=== PATIENT | male | born 1955 | race Caucasian/White ===

== ENCOUNTER 2023-10-23 12:53 | Outpatient (AMB) | payer OTHER, SELFPAY ==
--- NOTE | 2023-10-23 13:07 | MHC.PC.OV ---
Vital Signs 10/23/23 13:14 Height 6 ft 2 in Weight 223 lb BMI 28.6 BP 108/57 L Blood Pressure Location Rt brachial Position Sitting Respiration 12 Pulse 81 Pulse Source Pulse Oximeter Temp 98.2 F Temp Source Temporal Artery Scan Pulse Oximetry (%) 96 Oxygen Delivery Method Room Air Intake Visit Reasons: Establish Care Intake Note: establish care Allergies Penicillins [PENICILLINS] Allergy (Intermediate, Verified 10/23/23 13:07) HIVES Medication List - Last Reconciled 10/23/23 by Palmer Solorzano MD No Known Home Meds Tobacco use date assessed: 10/23/23 Fall risk assessment: No Falls in past year Last assessed Fall Risk: 10/23/23 Dental Screening Dental Screen Date: 10/23/23 Did you have a dental visit in the last 12 months?: Yes Did you have a dental problem in the last 6 months where you did not have access to dental care?: No Was dental information given to patient?: Patient has dentist HPI Establish Care HPI Details New Patient? ?? Prior PCP:? Memo BETANCUR, Last office visit/CPE:? > 1 yr Acute issue(s):? ??R knee knee x 1 yr. Uses a sleeve at night. PMHx:? Denies SurgHx:? Just colonoscopies FHx:? Dad: Anemia. EtOH. SocHx:? Nonsmoker. EtOH: about 3 beers for football games. No drugs HPI Comments History of Present Illness Details Documentation assistance for Palmer Solorzano MD, was provided by Oswaldo Mccracken,? Enterprise Systems Architect on 10/23/2023 at 1:30 PM EST. I, Dr. Solorzano, have read, observed, and verified documentation. [facility] Social History (Updated 10/23/23 @ 13:09 by Miriam Moncada) Housing: House Patient Tobacco Use Status: Never used Tobacco e-Cigarette/Vaping Use: Never Used Second Hand Smoke Exposure: No Use of substances other than those prescribed or required for medical reasons: No service: Yes Current occupational status: retired Current occupational exposures/hazards: No Cognitive needs: No Hearing needs: No Vision needs: No Questionnaire PHQ-9 Over the last 2 weeks, how often have you been bothered by any of the following problems? 1. Little interest or pleasure in doing things: not at all 2. Feeling down, depressed, or hopeless: not at all 3. Trouble falling or staying asleep, or sleeping too much: more than half the days 4. Feeling tired or having little energy: several days 5. Poor appetite or overeating: not at all 6. Feeling bad about yourself - or that you are a failure or have let yourself or your family down: not at all 7. Trouble concentrating on things, such as reading the newspaper or watching television: not at all 8. Moving or speaking so slowly that other people could have noticed. Or the opposite - being so fidgety or restless that you have been moving around a lot more than usual: not at all 9. Thoughts that you would be better off or of hurting yourself in some way: not at all Total score: 3 Depression Screening Interpretation: Negative Depression Screening Done: Yes 80750 - PHQ-9 Billing: Yes Source: Developed by Drs. Ben Singh, Shiela Matamoros, Pj Calles and colleagues, with an educational maynor from [employer]. Thrive Questionnaire Date Thrive assessed: 10/23/23 I am a: Patient What is your living situation today?: I have a steady place to live Within the past 12 months, did the food you bought not last and you didn't have the money to get more?: Never true Within the past 12 months, did you worry whether your food would run out before you got money to buy more?: Never true Do you have trouble paying for medicines?: No Do you have trouble getting transportation to medical appointments?: No Do you have trouble paying your heating and electricity bill?: No Do you have trouble taking care of your child, family member or friend?: No Do you have trouble with day-to-day activities such as bathing, preparing meals, shopping, managing finances, etc.?: No Are you currently unemployed and looking for a job?: No Are you interested in more education?: No Currently or been in a relationship where the following occur: No concerns reported THRIVE Score: 0 AUDIT C Alcohol Use Questionnaire (AUDIT-C) 1. How often do you have a drink containing alcohol?: 2-3 times a week 2. How many drinks containing alcohol do you have on a typical day when you are drinking?: 3 or 4 3. How often do you have six or more drinks on one occasion?: Weekly Total Score: 7 MIGUELANGEL-7 AMB Questionnaire MIGUELANGEL-7 Date MIGUELANGEL - 7 assessed: 10/23/23 Feeling nervous, anxious, or on edge: 0 = Not at all Not being able to stop or control worryin = Not at all Worrying too much about different things: 0 = Not at all Trouble relaxin = Not at all Being so restless that it is hard to sit still: 0 = Not at all Becoming easily annoyed or irritable: 0 = Not at all Feeling afraid as if something awful might happen: 0 = Not at all Total MIGUELANGEL-7 score (0-4 normal; 5-9 mild; 10-14 moderate; 15-21 severe): 0 Source: Developed by Drs. Ben Singh, Shiela Matamoros, Pj Calles and colleagues, with an educational maynor from [employer]. MIGUELANGEL-7 Assessment Billing MIGUELANGEL-7 Assessment Tool: MIGUELANGEL-7 Assessment 87114 Review of Systems Const Denies chills, Denies fatigue, Denies fever(s), Denies headache(s) and Denies weakness ENT Denies dizziness and Denies headache(s) Card Denies chest pain, Denies lightheadedness, Denies dyspnea and Denies other (Palpitations) Resp Denies cough, Denies dyspnea, Denies wheezing and Denies other ( shortness of breath) Musc Details: R knee pain Denies numbness and Denies tingling Neuro Denies dizziness, Denies headache(s), Denies numbness, Denies tingling, Denies paresthesias and Denies weakness Psych Denies anxiety and Denies depression Endo Denies fatigue Aller/Immun Denies wheezing Physical exam (Primary Care) Vital Signs: Last Vital Signs Temp 98.2 F 10/23/23 13:14 Pulse 81 10/23/23 13:14 Resp 12 10/23/23 13:14 BP 108/57 L 10/23/23 13:14 Pulse Ox 96 10/23/23 13:14 Oxygen Delivery Method Room Air 10/23/23 13:14 BMI result Body Mass Index 28.6 Tobacco/Smoking Status: Tobacco use Status Tobacco use date assessed 10/23/23 10/23/23 13:12 Patient Tobacco Use Status Never used Tobacco 10/23/23 13:12 e-Cigarette/Vaping Use Never Used 10/23/23 13:12 PHQ-9: PHQ-9 Score PHQ-9: Total score 3 10/23/23 13:26 Depression Screening Interpretation: Negative Thrive Assessment: Date of Thrive Assessment Date Thrive assessed 10/23/23 10/23/23 13:18 Currently or been in a relationship where the following occur: No concerns reported Const General: no acute distress and well developed Nutritional Appearance: well nourished Orientation/consciousness: patient oriented x3 HENMT Head: Yes normocephalic and Yes atraumatic Eyes General: appearance normal, both eyes and all related structures Pupils: Equal, round and reactive pupils present EOM: EOMs intact bilaterally Resp Effort & Inspection: normal respiratory effort Auscultation: clear to auscultation bilaterally Cardio Rate: regular rate Rhythm: regular rhythm Heart sounds: S1 normal heart sound present, S2 normal heart sound present, no gallops, no murmurs and no rubs Neuro General: patient oriented x3 and gait normal Cranial nerves: Yes Equal, round and reactive pupils present Psych Affect: normal affect Assessment and Plan Assessment & Plan (1) Right knee pain: Code(s): M25.561 - Pain in right knee Plan: Ongoing?right?knee?pain?for?a?year Special?testing?negative He?does?have?a?mild?effusion Likely?arthritis Checking?x-ray Trial?naproxen Ice/heat Will?follow-up?at?next?visit?and?discuss?next?steps (2) Laboratory exam ordered as part of routine general medical examination: Code(s): Z00.00 - Encounter for general adult medical examination without abnormal findings Plan: Check?labs Orders: Orders Complete Blood Count Auto Diff Today Z00.00 - Encounter for general adult medical examination without abnormal findings Comprehensive [place]. Panel Fast Today Z00.00 - Encounter for general adult medical examination without abnormal findings Lipid Panel Today Z00.00 - Encounter for general adult medical examination without abnormal findings Microalbumin, Random (w Creat) Today I10 - Essential (primary) hypertension TSH reflex Free T4 Today Z00.00 - Encounter for general adult medical examination without abnormal findings Prostate Specific Antigen Scr Today Z12.5 - Encounter for screening for malignant neoplasm of prostate UA and rflx microscopic Today Z00.00 - Encounter for general adult medical examination without abnormal findings Coding Level of Care Code New Pt Level 3 (27965) Diagnoses Right knee pain M25.561 Laboratory exam ordered as part of routine general medical examination Z00.00 Additional Codes MIGUELANGEL-7 Assessment Billing - MIGUELANGEL-7 Assessment Tool: MIGUELANGEL-7 Assessment 51890 ([id number])
[2023-10-23 13:14] VITALS: BP 108/57; PULSE 81; RESP 12; TEMP 36.8; O2SAT 96; BMI 28.6
== END 2023-10-23 13:53 | disposition home or self-care (01) ==
PROVIDERS: Visit Provider Family Medicine
DX: M25.561 Pain in right knee (principal)
CPT/HCPCS: 99203

== ENCOUNTER 2023-10-28 10:06 | Outpatient (REF) | payer OTHER, SELFPAY ==
[2023-10-28 11:24] LABS: MANUAL DIFF FLAG NO
[2023-10-28 11:33] LABS: Basophils Percent Auto 0.8 % (0-2); Eosinophils Absolute Auto 0.1 X10*3/uL (0.0-0.4); Eosinophils Percent Auto 2.7 % (0-4); Hematocrit 39.9 % (42.0-52.0); Hemoglobin 13.8 g/dl (14.0-18.0); Imm Gran Abs Auto 0.02 X10*3/uL (0.00-0.03); Imm Gran Pct Auto 0.4 % (0.0-0.4); Lymphocytes Absolute Auto 1.5 X10*3/uL (1.2-4.9); Lymphocytes Percent Auto 27.9 % (20-40); Mean Corpuscular HGB Conc 34.6 g/dl (31.0-36.0); Mean Corpuscular Hemoglobin 29.6 pg (27.0-33.0); Mean Corpuscular Volume 85.6 fL (80.0-98.0); Mean Platelet Volume 10.2 fL (9.4-12.4); Monocytes Absolute Auto 0.4 X10*3/uL (0.1-1.2); Monocytes Percent Auto 8.5 % (2-11); Neutrophils Absolute Auto 3.1 x10*3/uL (2.0-8.3); Neutrophils Percent Auto 59.7 % (45-73); Platelet Count 221 X10*3/uL (160-400); Red Blood Count 4.66 X10*6/uL (4.60-5.80); Red Cell Distribution Width 12.5 % (11.0-16.0); White Blood Count 5.2 X10*3/uL (4.8-10.8)
[2023-10-28 12:20] LABS: Alanine Aminotransferase 43 U/L (0-40); Albumin Level 4.3 g/dL (3.5-5.0); Alkaline Phosphatase 64 U/L (39-117); Anion Gap 13 (12-20); Aspartate Amino Transferase 28 U/L (5-37); Bilirubin Total 0.8 mg/dL (0.0-1.0); Blood Urea Nitrogen 11 mg/dL (9-16); Calcium 9.6 mg/dL (8.4-10.2); Carbon Dioxide 26 mmol/L (22-29); Chloride 106 mmol/L (96-108); Cholesterol 180 mg/dL (<200); Estimated Glomerular Filt Rate > 60; Glucose Fasting 102 mg/dL (60-99); HDL Cholesterol 51 mg/dL (>40); LDL Cholesterol Calculated 101 mg/dL (<100); Sodium 141 mmol/L (135-145); Total Protein 7.9 g/dL (6.5-8.0); Triglycerides 141 mg/dL (<150)
[2023-10-28 12:25] LABS: TSH reflex Free T4 1.09 uIU/mL (0.32-4.0)
[2023-10-28 12:26] LABS: Prostate Specific Antigen Scr 0.38 ng/mL (<0.05-4.0)
[2023-10-28 14:38] LABS: Appearance Urine Clear; Color Urine Yellow; Glucose Urine UA Negative (Negative); Leukocyte Esterase Urine Negative (Negative); Nitrite Urine Negative (Negative); PH 7.5 (5.0-9.0); Specific Gravity - Urine 1.015 (1.005-1.025); Urine Blood Negative (Negative); Urine Ketones Negative (Negative); Urine Protein Negative (Neg-Trace)
[2023-10-28 15:20] LABS: Creatinine Urine 100.59 mg/dL; Microalbum/Creatinine Ratio Ur 8.9 ug/mg cr (<30)
== END 2023-10-28 10:07 | disposition home or self-care (01) ==
LOC: HO.WFDLDS 10:06
PROVIDERS: Visit Provider Family Medicine
DX: Z00.00 Encounter for general adult medical examination without abnormal findings (principal); I10 Essential (primary) hypertension; Z12.5 Encounter for screening for malignant neoplasm of prostate
CPT/HCPCS: 36415; 80053; 80061; 81003; 82043; 82570; 84153; 84443; 85025

== ENCOUNTER 2023-12-07 14:25 | Outpatient (REF) | payer OTHER, SELFPAY | END 2023-12-07 14:26 | disposition home or self-care (01) | LOC: HO.XRAY 14:25 | PROVIDERS: PCP Family Medicine; Visit Provider Family Medicine | DX: M25.561 Pain in right knee (principal) | CPT/HCPCS: 73562 ==

== ENCOUNTER 2024-05-24 15:45 | Outpatient (AMB) | payer MEDICARE, OTHER, SELFPAY ==
--- NOTE | 2024-05-24 15:52 | A.OFFPC_ITS ---
Vital Signs 05/24/24 15:57 05/24/24 15:59 Height 6 ft 2 in Weight 227 lb 2 oz BMI 29.2 BP 160/90 H 140/80 H Blood Pressure Location Lt brachial Lt brachial Position Sitting Sitting Respiration 14 Pulse 68 Pulse Source Pulse Oximeter Temp 97.7 F Temp Source Oral Pulse Oximetry (%) 96 Oxygen Delivery Method Room Air Intake Visit Reasons: awv Intake Note: patient is scheduled for physical Allergies Penicillins [PENICILLINS] Allergy (Intermediate, Verified 05/24/24 15:55) HIVES Medication List - Last Reconciled 05/24/24 by Palmer Solorzano MD naproxen 500 mg PO BID 30 days Tobacco use date assessed: 05/24/24 Fall risk assessment: No Falls in past year Last assessed Fall Risk: 05/24/24 Dental Screening Dental Screen Date: 05/24/24 Did you have a dental visit in the last 12 months?: Yes Did you have a dental problem in the last 6 months where you did not have access to dental care?: Yes Was dental information given to patient?: No HPI awv HPI Details 69 y/o male presents for an extended exa m with f/u labs and health maintenance. Labs drawn 10/28/23. Reviewed labs with pt. Mild anemia. Elevated fasting glucose of 102. Elevated ALT of 43. Triglycerides 141. TC 180. LDL 101. HDL 51. Blood pressure today 140/80, 68p. He is not on any meds for his blood pressure. Pt notes he had a cold recently. [facility] Social History (Updated 10/23/23 @ 13:09 by Miriam Moncada [facility]) Housing: House Patient Tobacco Use Status: Never used Tobacco e-Cigarette/Vaping Use: Never Used Second Hand Smoke Exposure: No service: Yes Current occupational status: retired Current occupational exposures/hazards: No Cognitive needs: No Hearing needs: No Vision needs: No Questionnaire PHQ-9 Over the last 2 weeks, how often have you been bothered by any of the following problems? 1. Little interest or pleasure in doing things: not at all 2. Feeling down, depressed, or hopeless: not at all 3. Trouble falling or staying asleep, or sleeping too much: not at all 4. Feeling tired or having little energy: not at all 5. Poor appetite or overeating: not at all 6. Feeling bad about yourself - or that you are a failure or have let yourself or your family down: not at all 7. Trouble concentrating on things, such as reading the newspaper or watching television: not at all 8. Moving or speaking so slowly that other people could have noticed. Or the opposite - being so fidgety or restless that you have been moving around a lot more than usual: not at all 9. Thoughts that you would be better off or of hurting yourself in some way: not at all Total score: 0 Depression Screening Interpretation: Negative Depression Screening Done: Yes 54647 - PHQ-9 Billing: Yes Source: Developed by Drs. Ben Singh, Shiela Matamoros, Pj Calles and colleagues, with an educational maynor from [employer]. Thrive Questionnaire Date Thrive assessed: 05/24/24 I am a: Patient What is your living situation today?: I have a steady place to live Within the past 12 months, did the food you bought not last and you didn't have the money to get more?: Never true Within the past 12 months, did you worry whether your food would run out before you got money to buy more?: Never true Do you have trouble paying for medicines?: No Do you have trouble getting transportation to medical appointments?: No Do you have trouble paying your heating and electricity bill?: No Do you have trouble taking care of your child, family member or friend?: No Do you have trouble with day-to-day activities such as bathing, preparing meals, shopping, managing finances, etc.?: No Are you currently unemployed and looking for a job?: No Are you interested in more education?: No Please select the resources that you would like help with: None Currently or been in a relationship where the following occur: No concerns reported THRIVE Score: 0 AUDIT C Alcohol Use Questionnaire (AUDIT-C) 1. How often do you have a drink containing alcohol?: 2-3 times a week 2. How many drinks containing alcohol do you have on a typical day when you are drinking?: 1 or 2 3. How often do you have six or more drinks on one occasion?: Never Total Score: 3 MIGUELANGEL-7 AMB Questionnaire MIGUELANGEL-7 Date MIGUELANGEL - 7 assessed: 04/08/25 Feeling nervous, anxious, or on edge: 0 = Not at all Not being able to stop or control worryin = Not at all Worrying too much about different things: 0 = Not at all Trouble relaxin = Not at all Being so restless that it is hard to sit still: 0 = Not at all Becoming easily annoyed or irritable: 0 = Not at all Feeling afraid as if something awful might happen: 0 = Not at all Total MIGUELANGEL-7 score (0-4 normal; 5-9 mild; 10-14 moderate; 15-21 severe): 0 Source: Developed by Drs. Ben Singh, Shiela Matamoros, Pj Calles and colleagues, with an educational maynor from [employer]. MIGUELANGEL-7 Assessment Billing MIGUELANGEL-7 Assessment Tool: MIGUELANGEL-7 Assessment 07022 Review of Systems Const Denies chills, Denies fatigue, Denies fever(s), Denies headache(s) and Denies weakness Eyes Denies change in vision ENT Denies dizziness and Denies headache(s) Card Denies chest pain, Denies lightheadedness, Denies dyspnea and Denies other (Palpitations) Resp Denies cough, Denies dyspnea, Denies wheezing and Denies other ( shortness of breath) GI Denies abdominal pain, Denies melena, Denies hematochezia, Denies change in bowel habits, Denies dyspepsia and Denies nausea Denies hematuria and Denies dysuria Musc Denies numbness and Denies tingling Skin/Breast Denies rash, Denies unusual bruising and Denies wounds Neuro Denies dizziness, Denies headache(s), Denies numbness, Denies Sensory deficit (Neuro), Denies tingling, Denies paresthesias and Denies weakness Psych Denies anxiety and Denies depression Endo Denies fatigue Rudolph/Lymph Denies easy bleeding and Denies easy bruising Aller/Immun Denies wheezing Physical exam (Primary Care) Vital Signs: Last Vital Signs Temp 97.7 F 05/24/24 15:57 Pulse 68 05/24/24 15:57 Resp 14 05/24/24 15:57 BP 140/80 H 05/24/24 15:59 Pulse Ox 96 05/24/24 15:57 Oxygen Delivery Method Room Air 05/24/24 15:57 BMI result Body Mass Index 29.2 Tobacco/Smoking Status: Tobacco use Status Tobacco use date assessed 05/24/24 05/24/24 16:00 Patient Tobacco Use Status Never used Tobacco 05/24/24 15:52 e-Cigarette/Vaping Use Never Used 05/24/24 15:52 PHQ-9: PHQ-9 Score PHQ-9: Total score 0 05/24/24 16:00 Depression Screening Interpretation: Negative Thrive Assessment: Date of Thrive Assessment Date Thrive assessed 05/24/24 05/24/24 16:00 Currently or been in a relationship where the following occur: No concerns reported Const General: no acute distress and well developed Nutritional Appearance: well nourished Orientation/consciousness: patient oriented x3 HENMT Head: Yes normocephalic and Yes atraumatic Ears: hearing grossly normal bilaterally and TM's normal bilaterally General nose exam: Normal external nose present and Normal nares present Mouth: Normal oral and palatal mucosa present and moist mucous membranes Teeth and gingiva: dentition normal Throat: Yes posterior oropharynx normal Eyes General: appearance normal, both eyes and all related structures Pupils: Equal, round and reactive pupils present EOM: EOMs intact bilaterally Neck Neck: Yes normal visual inspection, Yes no lymphadenopathy and Yes trachea midline Thyroid: Thyroid normal Carotids: no bruits Lymphatic: no lymphadenopathy noted Chest Chest palpation & inspection: normal inspection of the chest Resp Effort & Inspection: normal respiratory effort Auscultation: clear to auscultation bilaterally Cardio Rate: regular rate Rhythm: regular rhythm Heart sounds: S1 normal heart sound present, S2 normal heart sound present, no gallops, no murmurs and no rubs Bruits: no abdominal aortic bruits and no carotid bruits GI Palpation (GI): No Abdominal aortic bruit present, Soft to palpation, nontender, No hepatosplenomegaly present and No Rebound tenderness present Auscultation: normal bowel sounds General: Yes no CVA tenderness Back/Spine/Pelvis Back: no CVA tenderness Cervical Spine: cervical ROM normal and No Cervical spine tenderness Thoracic/Lumbar Spine: thoraco-lumbar ROM normal, No pain with thoraco-lumbar ROM, No thoracic spinal tenderness and No lumbar spinal tenderness Skin Lesions: no lesions Rashes: no rashes Trauma: no lacerations or abrasions Wounds: no wounds Nails: normal Neuro General: patient oriented x3 and gait normal Cranial nerves: Yes Equal, round and reactive pupils present Cognition (Neuro): normal cognition Gait exam (Neuro): Normal gait present Motor exam (neuro): 5/5 motor strength present throughout Sensory Exam: No Sensory deficit (Neuro) Deep tendon reflexes (DTR's): Right patellar reflex intensity grade: 2+ and Left patellar reflex intensity grade: 2+ Extrem General: Yes normal to inspection and No edema Psych Appearance: grossly normal Affect: normal affect Attitude: cooperative Thought process: Normal thought process present Coding Level of Care Code Est Pt Level 4 (55092) Diagnoses Elevated blood pressure reading R03.0 Mild anemia D64.9 Elevated LDL cholesterol level E78.00 Elevated fasting glucose R73.01 Elevated ALT measurement R74.01 Screening for colon cancer Z12.11 Screening for prostate cancer Z12.5 Knee pain M25.569 Adult general medical examination Z00.00 Additional Codes MIGUELANGEL-7 Assessment Billing - MIGUELANGEL-7 Assessment Tool: MIGUELANGEL-7 Assessment 45295 ([id number]) PHQ-9 - 11388 - PHQ-9 Billing: Yes ([id number]) Assessment & Plan Assessment & Plan (1) Elevated blood pressure reading: Code(s): R03.0 - Elevated blood-pressure reading, without diagnosis of hypertension Category: Medical Plan: Elevated?blood?pressure?reading?today. Patient?does?note?that?he?had?a?cold?recently Will?recheck?at?next?visit?and?if?still?elevated?will?discuss?medications?for?hy pertension. (2) Mild anemia: Code(s): D64.9 - Anemia, unspecified Category: Medical Plan: Mildly?low?H&H. Will?recheck?this?prior?to?next?visit?and?review?with?patient (3) Elevated LDL cholesterol level: Code(s): E78.00 - Pure hypercholesterolemia, unspecified Category: Medical Plan: Mildly?elevated?LDL?cholesterol HDL?cholesterol?and?ratios?are?good Encouraged?diet?lower?in?saturated?fats?and?cholesterol Encouraged?weight?loss?and?exercise (4) Elevated fasting glucose: Code(s): R73.01 - Impaired fasting glucose Category: Medical Plan: Mildly?elevated?fasting?blood?sugar Will?recheck?this?as?well?as?an?A1c (5) Elevated ALT measurement: Code(s): R74.01 - Elevation of levels of liver transaminase levels Category: Medical Plan: Mildly?elevated?ALT Recommended?weight?loss?and?exercise Will?recheck?his?prior?to?next?visit?and?review?with?patient (6) Screening for colon cancer: Code(s): Z12.11 - Encounter for screening for malignant neoplasm of colon Category: Medical Plan: Patient?says?he?was?due?for?colonoscopy around?2020?with??[facility] 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 X-ray?showed?osteoarthritis?and?mild?effusion Patient?notes?that?knee?pain?has?improved He?is?only?using?NSAIDs?periodically Encouraged?strengthening?of?quadriceps?and?hamstrings Ice/heat He?will?let?me?know?if?symptoms?return?or?worsen. (9) Adult general medical examination: Code(s): Z00.00 - Encounter for general adult medical examination without abnormal findings Category: Medical Plan: 69-year-old?male?presents?for?an?extended?exam Encouraged?healthy?diet?with?active?lifestyle?and?plenty?of?exercise Orders: Orders Microalbumin, Random (w Creat) Today I10 - Essential (primary) hypertension, R03.0 - Elevated blood-pressure reading, without diagnosis of hypertension Complete Blood Count Auto Diff Today D64.9 - Anemia, unspecified, Z00.00 - Encounter for general adult medical examination without abnormal findings IRON PROFILE Today D64.9 - Anemia, unspecified Comprehensive [place]. Panel Fast Today R74.01 - Elevation of levels of liver transaminase levels, Z00.00 - Encounter for general adult medical examination without abnormal findings Lipid Panel Today E78.00 - Pure hypercholesterolemia, unspecified, Z00.00 - Encounter for general adult medical examination without abnormal findings Vitamin B12 and Folate Today D64.9 - Anemia, unspecified, E53.8 - Deficiency of other specified B group vitamins Reticulocyte Count Today D64.9 - Anemia, unspecified Referrals Gastroenterology Referral Z12.11 - Encounter for screening for malignant neoplasm of colon
[2024-05-24 15:57] VITALS: BP 160/90; PULSE 68; RESP 14; TEMP 36.5; O2SAT 96; BMI 29.2
[2024-05-24 15:59] VITALS: BP 140/80
== END 2024-05-24 16:37 | disposition home or self-care (01) ==
PROVIDERS: PCP Family Medicine; Visit Provider Family Medicine
DX: R03.0 Elevated blood-pressure reading, without diagnosis of hypertension (principal); D64.9 Anemia, unspecified; E78.00 Pure hypercholesterolemia, unspecified; R73.01 Impaired fasting glucose; R74.01 Elevation of levels of liver transaminase levels; Z12.11 Encounter for screening for malignant neoplasm of colon; Z12.5 Encounter for screening for malignant neoplasm of prostate; M25.569 Pain in unspecified knee; Z00.00 Encounter for general adult medical examination without abnormal findings

== ENCOUNTER → 2024-05-24 15:45 | Outpatient (BNVA) | payer OTHER, MEDICARE, SELFPAY | PROVIDERS: PCP Family Medicine; Visit Provider Family Medicine | DX: Z00.00 Encounter for general adult medical examination without abnormal findings (principal); R03.0 Elevated blood-pressure reading, without diagnosis of hypertension; E78.00 Pure hypercholesterolemia, unspecified; D64.9 Anemia, unspecified; R73.01 Impaired fasting glucose; R74.01 Elevation of levels of liver transaminase levels; M17.11 Unilateral primary osteoarthritis, right knee; M25.461 Effusion, right knee | CPT/HCPCS: 96127; 99212 ==

== ENCOUNTER 2024-06-24 11:29 | Outpatient (REF) | payer OTHER, MEDICARE, SELFPAY ==
--- OUTSIDE RECORDS SUMMARY | 2024-06-24 11:57 | XMS_ITS | Patient Health Record ---
Author Organization [facility] Address [address] [place] [address] Care Team Providers Care Caul Puller Name Role Phone Samson BROWN, Hattie Primary Care Provider Ghanshyam Valentino Jr, Asif Nick [phone] Allergies Allergen (clinical drug ingredient) Drug/Non Drug Allergy documented on EMR Reaction Allergy Type Onset Date Status Penicillin Unknown Drug Allergy Active Reason For Referral No Information Medications Medication SIG (Take, Route, Fr equency, Duration) Notes Start Date End Date Status Aspirin EC Low Dose Active MoviPrep 100 GM as directed before c olonoscopy Orally for 1 dose 02/24/2013 02/17/2024 Active Problems Problem Type SNOMED Code ICD Code Onset Dates Problem Status W/U Status Risk Notes Problem Colon cancer screening ([id number]) Colon cancer screening (V76.51) Active confirmed Problem Current use of aspirin (V58.66) Active confirmed Plan Of Treatment Future Test Test Name Order Date COLONOSCOPY 02/24/2013 Next Appt Details Provider Name:Asif avilez Jr, 08/29/2024 01:15:00 PM, [address], [address], [place], [address], Insurance Providers Payer Name Payer Address Payer Phone Subscriber Number Group Number Insured Name Patient Relationship to Insured Coverage Start Date Coverage End Date MEDICARE OF [place] [address] [place] [address] [phone] [id number] LAURA NOVOA Self - patient is the insured [facility] [address] [place] [address] [id number] LAURA NOVOA Self - patient is the insured Medical (General) History Medical History History ICD Code colonoscopy 12-22-2007 colon polyps Denies NM,DM,CVA,Lung disease,renal dise ase Surgical History Surgery Date(Month/Year) tonsillectomy
[2024-06-24 14:05] LABS: MANUAL DIFF FLAG NO
[2024-06-24 14:09] LABS: Basophils Percent Auto 0.5 % (0-2); Eosinophils Absolute Auto 0.2 X10*3/uL (0.0-0.4); Hematocrit 40.2 % (42.0-52.0); Hemoglobin 13.8 g/dl (14.0-18.0); Imm Gran Abs Auto 0.02 X10*3/uL (0.00-0.03); Imm Gran Pct Auto 0.4 % (0.0-0.4); Immature Retic Fraction 11.6 % (2.3-13.4); Lymphocytes Absolute Auto 1.6 X10*3/uL (1.2-4.9); Lymphocytes Percent Auto 28.8 % (20-40); Mean Corpuscular HGB Conc 34.3 g/dl (31.0-36.0); Mean Corpuscular Hemoglobin 29.4 pg (27.0-33.0); Mean Corpuscular Volume 85.5 fL (80.0-98.0); Mean Platelet Volume 10.3 fL (9.4-12.4); Monocytes Absolute Auto 0.5 X10*3/uL (0.1-1.2); Monocytes Percent Auto 8.8 % (2-11); Neutrophils Absolute Auto 3.3 x10*3/uL (2.0-8.3); Neutrophils Percent Auto 58.5 % (45-73); Platelet Count 209 X10*3/uL (160-400); Retic HGB Equivalent 33.7 pg (30.0-35.0); Reticulocyte Percent 1.9 % (0.5-1.8); White Blood Count 5.6 X10*3/uL (4.8-10.8)
[2024-06-24 14:41] LABS: Albumin Level 4.4 g/dL (3.5-5.0); Alkaline Phosphatase 64 U/L (39-117); Anion Gap 10 (12-20); Aspartate Amino Transferase 38 U/L (5-37); Bilirubin Total 1.1 mg/dL (0.0-1.0); Blood Urea Nitrogen 15 mg/dL (9-16); Calcium 9.7 mg/dL (8.4-10.2); Carbon Dioxide 28 mmol/L (22-29); Chloride 103 mmol/L (96-108); Cholesterol 181 mg/dL (<200); Estimated Glomerular Filt Rate > 60; Glucose Fasting 96 mg/dL (60-99); HDL Cholesterol 53 mg/dL (>40); Iron 112 mcg/dL (45-160); LDL Cholesterol Calculated 108 mg/dL (<100); Percent Iron Saturation 36 % (15-50); Potassium 4.3 mmol/L (3.3-5.1); Sodium 137 mmol/L (135-145); Total Iron Binding Capacity 313 mcg/dL (228-428); Total Protein 8.2 g/dL (6.5-8.0); Triglycerides 102 mg/dL (<150); Unsaturated Iron Binding 201 ug/dL
[2024-06-24 14:44] LABS: Creatinine Urine 102.06 mg/dL; Microalbum/Creatinine Ratio Ur 11.7 ug/mg cr (<30)
[2024-06-24 14:52] LABS: Alanine Aminotransferase 55 U/L (0-40)
[2024-06-24 15:08] LABS: Vitamin B12 429 pg/mL (200-900)
== END 2024-06-24 11:30 | disposition home or self-care (01) ==
LOC: HO.WFDLDS 11:29
PROVIDERS: Visit Provider Family Medicine
DX: Z00.00 Encounter for general adult medical examination without abnormal findings (principal); I10 Essential (primary) hypertension; R03.0 Elevated blood-pressure reading, without diagnosis of hypertension; D64.9 Anemia, unspecified; R74.01 Elevation of levels of liver transaminase levels; E78.00 Pure hypercholesterolemia, unspecified; E53.8 Deficiency of other specified B group vitamins
CPT/HCPCS: 36415; 80053; 80061; 82043; 82570; 82607; 82746; 83540; 85025; 85045

== ENCOUNTER 2024-06-27 15:16 | Outpatient (AMB) | payer MEDICARE, OTHER, SELFPAY ==
--- OUTSIDE RECORDS SUMMARY | 2024-06-27 15:20 | XMS_ITS | Patient Health Record ---
Author Organization [facility] Address [address] [place] [address] Care Team Providers Care Student Counselor Name Role Phone Samson BROWN, Hattie Primary Care Provider Ghanshyam Valentino Jr, Asif Nick [phone] Allergies Allergen (clinical drug ingredient) Drug/Non [...] Status Risk Notes Problem Colon cancer screening (935470587) Colon cancer screening (V76.51) Active confirmed Problem Current use of aspirin (V58.66) Active confirmed Plan Of Treatment Future Test Test Name Order Date COLONOSCOPY 02/24/2013 Next Appt Details Provider Name:Asif avilez Jr, 08/29/2024 01:15:00 PM, [address], [address], [place], [address], Insurance Providers Payer Name Payer Address Payer Phone Subscriber Number Group Number Insured Name Patient Relationship to Insured Coverage Start Date Coverage End Date MEDICARE OF [place] [address] [place] [address] [phone] [id number] LAURA NOVOA Self - patient is the insured [facility] [address] [place] [address] [id number] LAURA NOVOA Self - patient is the insured Medical (General) History Medical History History ICD Code colonoscopy 12-22-2007 colon polyps Denies CA,DM,CVA,Lung disease,renal dise ase Surgical History Surgery Date(Month/Year) tonsillectomy
--- NOTE | 2024-06-27 15:50 | A.OFFPC_ITS ---
Vital Signs 06/27/24 15:51 Height 6 ft 2 in Weight 229 lb 4 oz BMI 29.4 BP 120/78 Blood Pressure Location Lt brachial Position Sitting Respiration 14 Pulse 69 Pulse Source Pulse Oximeter Temp 97.9 F Temp Source Oral Pulse Oximetry (%) 97 Oxygen Delivery Method Room Air Intake Visit Reasons: f/u labs Intake Note: patient is scheduled for follow up labs Director Community Health Nursing Required: No Allergies Penicillins [PENICILLINS] Allergy (Intermediate, Verified 06/27/24 15:50) HIVES Tobacco use date assessed: 05/24/24 Dental Screening Dental Screen Date: 05/24/24 HPI f/u labs HPI Details 69 y/o male presents to f/u hypertension , labs. Labs drawn 06/24/24. Reviewed labs with pt. Ongoing mild anemia. Ongoing elevated liver enzymes - AST 38, ALT 55. Denies excessive EtOH use. Denies aspirin/ibuprofen use. Triglycerides 102. TC 181. LDL 108. HDL 53. BP today is fine at 120/78, 69p. [facility] Social History (Updated 10/23/23 @ 13:09 by [facility]iam Moncada [facility] Housing: House Patient Tobacco Use Status: Never used Tobacco e-Cigarette/Vaping Use: Never Used Second Hand Smoke Exposure: No service: Yes Current occupational status: retired Current occupational exposures/hazards: No Cognitive needs: No Hearing needs: No Vision needs: No Questionnaire Thrive Questionnaire Date Thrive assessed: 05/17/24 I am a: Patient What is your living situation today?: I have a steady place to live Within the past 12 months, did the food you bought not last and you didn't have the money to get more?: Never true Within the past 12 months, did you worry whether your food would run out before you got money to buy more?: Never true Do you have trouble paying for medicines?: No Do you have trouble getting transportation to medical appointments?: No Do you have trouble paying your heating and electricity bill?: No Do you have trouble taking care of your child, family member or friend?: No Do you have trouble with day-to-day activities such as bathing, preparing meals, shopping, managing finances, etc.?: No Are you currently unemployed and looking for a job?: No Are you interested in more education?: No Please select the resources that you would like help with: None Currently or been in a relationship where the following occur: No concerns reported THRIVE Score: 0 MIGUELANGEL-7 AMB Questionnaire MIGUELANGEL-7 Date MIGUELANGEL - 7 assessed: 05/24/24 Source: Developed by Drs. Ben Singh, Shiela Matamoros, Pj Calles and colleagues, with an educational maynor from [employer]. Review of Systems Const Denies chills, Denies fatigue, Denies fever(s), Denies headache(s) and Denies weakness ENT Denies dizziness and Denies headache(s) Card Denies dyspnea Resp Denies cough, Denies dyspnea, Denies wheezing and Denies other (shortness of breath) Musc Denies numbness and Denies tingling Neuro Denies dizziness, Denies headache(s), Denies numbness, Denies tingling and Denies weakness Psych Denies anxiety and Denies depression Endo Denies fatigue Aller/Immun Denies wheezing Physical exam (Primary Care) Vital Signs: Last Vital Signs Temp 97.9 F 06/27/24 15:51 Pulse 69 06/27/24 15:51 Resp 14 06/27/24 15:51 BP 120/78 06/27/24 15:51 Pulse Ox 97 06/27/24 15:51 Oxygen Delivery Method Room Air 06/27/24 15:51 BMI result Body Mass Index 29.4 Tobacco/Smoking Status: Tobacco use Status Tobacco use date assessed 05/24/24 06/27/24 15:53 Patient Tobacco Use Status Never used Tobacco 06/27/24 15:53 e-Cigarette/Vaping Use Never Used 06/27/24 15:53 Thrive Assessment: Date of Thrive Assessment Date Thrive assessed 05/17/24 06/27/24 15:53 Currently or been in a relationship where the following occur: No concerns reported Const General: well developed; No acute distress Nutritional Appearance: well nourished Orientation/consciousness: patient oriented x3 HENMT Head: Yes normocephalic and Yes atraumatic Eyes General: appearance normal, both eyes and all related structures Pupils: Equal, round and reactive pupils present EOM: EOMs intact bilaterally Resp Effort & Inspection: normal respiratory effort Neuro General: patient oriented x3 and gait normal Cranial nerves: Yes Equal, round and reactive pupils present Psych Affect: normal affect Coding Level of Care Code Est Pt Level 4 (95929) Diagnoses Elevated blood pressure reading R03.0 Mild anemia D64.9 Elevated liver enzymes R74.8 Elevated LDL cholesterol level E78.00 Knee pain M25.569 Assessment & Plan Assessment & Plan (1) Elevated blood pressure reading: Code(s): R03.0 - Elevated blood-pressure reading, without diagnosis of hypertension Category: Medical Plan: Blood?pressure?significantly?lower?than?prior?visit?and?no?diagnosis?of?hyperten sukumar (2) Mild anemia: Code(s): D64.9 - Anemia, unspecified Category: Medical Plan: Ongoing?mild?anemia Retic?count?elevated No?evidence?iron?deficiency?or?B12?deficiency Patient?says?he?does?not?drink?extensively Denies?any?bleeding Will?recheck?again?with?next?blood?draw If?still?elevated?will?investigate for blood loss. May need ref to GI (3) Elevated liver enzymes: Code(s): R74.8 - Abnormal levels of other serum enzymes Category: Medical Plan: Elevated?liver?enzymes Had?advised?patient?to?work?at?weight?loss?but?he?gained?some?weight. Advised?him?to?work?on?weight?loss?again. Will?recheck?liver?enzymes If?the?same?or?higher?at?next?check?will?get?liver?ultrasound. 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 only?intermittently. Also?advised?cold?packs Keep?quadriceps?strong He?will?let?me?know?if?worsening Orders: Orders Ferritin Today D64.9 - Anemia, unspecified Lipid Panel Today E78.00 - Pure hypercholesterolemia, unspecified, Z00.00 - Encounter for general adult medical examination without abnormal findings Comprehensive [place]. Panel Fast Today R74.8 - Abnormal levels of other serum enzymes, Z00.00 - Encounter for general adult medical examination without abnormal findings Complete Blood Count Auto Diff Today D64.9 - Anemia, unspecified, Z00.00 - Encounter for general adult medical examination without abnormal findings IRON PROFILE Today D64.9 - Anemia, unspecified TSH reflex Free T4 Today D64.9 - Anemia, unspecified, Z00.00 - Encounter for general adult medical examination without abnormal findings
[2024-06-27 15:51] VITALS: BP 120/78; PULSE 69; RESP 14; TEMP 36.6; O2SAT 97; BMI 29.4
== END 2024-06-27 16:27 | disposition home or self-care (01) ==
LOC: HO.HMCFM 15:17
PROVIDERS: PCP Family Medicine; Visit Provider Family Medicine
DX: R03.0 Elevated blood-pressure reading, without diagnosis of hypertension (principal); D64.9 Anemia, unspecified; R74.8 Abnormal levels of other serum enzymes; E78.00 Pure hypercholesterolemia, unspecified; M25.569 Pain in unspecified knee

== ENCOUNTER → 2024-06-27 15:16 | Outpatient (BNVA) | payer MEDICARE, OTHER, SELFPAY | PROVIDERS: PCP Family Medicine; Visit Provider Family Medicine | DX: R03.0 Elevated blood-pressure reading, without diagnosis of hypertension (principal); D64.9 Anemia, unspecified; R74.8 Abnormal levels of other serum enzymes; E78.00 Pure hypercholesterolemia, unspecified | CPT/HCPCS: 99212 ==

== ENCOUNTER 2024-09-05 10:44 | Outpatient (REF) | payer OTHER, MEDICARE, SELFPAY ==
--- OUTSIDE RECORDS SUMMARY | 2024-09-05 11:47 | XMS_ITS | Patient Health Record ---
Author Organization [facility] Address [address] [place] [address] Care Team Providers Care Data Science And Iot Manager Name Role Phone Palmer Solorzano Primary Care Provider Nella Costa Jr, Asif Unavailable Allergies Allergen (clinical drug ingredient) Drug/Non Drug [...] Problem Status W/U Status Risk Notes Problem Encounter for screening for malignant neoplasm of colon (Z12.11) Active confirmed Problem H/O: high risk medication (566772318) High risk medication use (Z79.899) Active confirmed Vital Signs Temperature 99.3 degrees Fahrenheit 08/29/2024 Blood pressure diastolic 01 mm Hg 08/29/2024 Height 73 in 08/29/2024 Blood pressure systolic 001 mm Hg 08/29/2024 Weight 227.4 lbs 08/29/2024 BMI 30 kg/m2 08/29/2024 Encounters Encounter Location Date Provider Diagnosis [facility] [address] [place] [phone] 08/29/2024 Asif Valentino Jr Encounter for screening [...] Provider Name:Asif avilez , 09/27/2024 11:30:00 AM, [address] [place] [address], [phone], Insurance Providers Payer Name Payer Address Payer Phone Subscriber Number Group Number Insured Name Patient Relationship to Insured Coverage Start Date Coverage End Date MEDICARE OF [place] [address] [place] [address] [id number] LAURA NOVOA Self - patient is the insured 2 4 [facility] [address] [place] [address] [id number] LAURA NOVOA Self - patient is the insured 2 4 Medical (General) History Medical History History ICD Code Colonoscopy 05/30, tubular adenoma, 5-yea r follow-up Osteoarthritis Borderline high blood pressure Surgical History Surgery Date(Month/Year) tonsillectomy
[2024-09-05 14:04] LABS: MANUAL DIFF FLAG NO
[2024-09-05 14:18] LABS: Hematocrit 39.9 % (42.0-52.0); Hemoglobin 13.7 g/dl (14.0-18.0); Imm Gran Abs Auto 0.02 X10*3/uL (0.00-0.03); Imm Gran Pct Auto 0.4 % (0.0-0.4); Lymphocytes Absolute Auto 1.6 X10*3/uL (1.2-4.9); Mean Corpuscular HGB Conc 34.3 g/dl (31.0-36.0); Mean Corpuscular Hemoglobin 29.3 pg (27.0-33.0); Mean Corpuscular Volume 85.3 fL (80.0-98.0); NRBC Abs Auto 0.000 X10*3/uL (0.0-0.012); NRBC Pct Auto 0.0 /100WBC (0.0-0.2); Platelet Count 204 X10*3/uL (160-400); Red Blood Count 4.68 X10*6/uL (4.60-5.80); White Blood Count 5.4 X10*3/uL (4.8-10.8)
[2024-09-05 14:47] LABS: Alanine Aminotransferase 60 U/L (0-40); Albumin Level 4.6 g/dL (3.5-5.0); Alkaline Phosphatase 64 U/L (39-117); Anion Gap 11 (12-20); Aspartate Amino Transferase 42 U/L (5-37); Blood Urea Nitrogen 15 mg/dL (9-16); Calcium 9.2 mg/dL (8.4-10.2); Carbon Dioxide 26 mmol/L (22-29); Chloride 110 mmol/L (96-108); Cholesterol 183 mg/dL (<200); Estimated Glomerular Filt Rate > 60; Ferritin 228 ng/mL (20-250); HDL Cholesterol 47 mg/dL (>40); Iron 122 mcg/dL (45-160); Percent Iron Saturation 37 % (15-50); Potassium 4.2 mmol/L (3.3-5.1); Sodium 143 mmol/L (135-145); Total Iron Binding Capacity 333 mcg/dL (228-428); Total Protein 7.9 g/dL (6.5-8.0); Triglycerides 125 mg/dL (<150); Unsaturated Iron Binding 211 ug/dL
== END 2024-09-05 10:45 | disposition home or self-care (01) ==
LOC: HO.WFDLDS 10:44
PROVIDERS: Visit Provider Family Medicine
DX: Z00.00 Encounter for general adult medical examination without abnormal findings (principal); R74.8 Abnormal levels of other serum enzymes; D64.9 Anemia, unspecified; E78.00 Pure hypercholesterolemia, unspecified
CPT/HCPCS: 36415; 80053; 80061; 82728; 83540; 84443; 85025

== ENCOUNTER 2024-09-07 09:13 | Outpatient (AMB) | payer MEDICARE, OTHER, SELFPAY ==
--- NOTE | 2024-09-07 09:31 | MHC.PC.OV ---
Vital Signs 09/07/24 09:32 Height 6 ft 2 in Weight 226 lb 2 oz BMI 29.0 BP 120/70 Blood Pressure Location Lt brachial Position Sitting Respiration 14 Pulse 68 Pulse Source Pulse Oximeter Temp 97.8 F Temp Source Oral Pulse Oximetry (%) 95 Oxygen Delivery Method Room Air Intake Visit Reasons: f/u elevated liver enzymes, labs Intake Note: patient is scheduled for lab review Marine Gear Keeper Required: No Allergies Penicillins (PENICILLINS) Allergy (Intermediate, Verified 09/07/24 09:31) HIVES Tobacco use date assessed: 05/24/24 Dental Screening Dental Screen Date: 05/24/24 HPI f/u elevated liver enzymes, labs HPI Details 69 y/o male presents to f/u elevated liver enzymes, labs. Labs drawn 09/05/24. Reviewed labs with pt. Mild anemia. Fasting glucose 100. Elevated liver enzymes - AST 42, ALT 60. Triglycerides 125. TC 183. LDL 111. HDL 47. TSH 1.27. A1c today 09/07/24 is 6.0%. [facility] Social History (Updated 10/23/23 @ 13:09 by Miriam Moncada [facility]) Housing: House Patient Tobacco Use Status: Never used Tobacco e-Cigarette/Vaping Use: Never Used Second Hand Smoke Exposure: No service: Yes Current occupational status: retired Current occupational exposures/hazards: No Cognitive needs: No Hearing needs: No Vision needs: No Questionnaire Thrive Questionnaire Date Thrive assessed: 05/17/24 I am a: Patient What is your living situation today?: I have a steady place to live Within the past 12 months, did the food you bought not last and you didn't have the money to get more?: Never true Within the past 12 months, did you worry whether your food would run out before you got money to buy more?: Never true Do you have trouble paying for medicines?: No Do you have trouble getting transportation to medical appointments?: No Do you have trouble paying your heating and electricity bill?: No Do you have trouble taking care of your child, family member or friend?: No Do you have trouble with day-to-day activities such as bathing, preparing meals, shopping, managing finances, etc.?: No Are you currently unemployed and looking for a job?: No Are you interested in more education?: No Please select the resources that you would like help with: None Currently or been in a relationship where the following occur: No concerns reported THRIVE Score: 0 MIGUELANGEL-7 AMB Questionnaire MIGUELANGEL-7 Date MIGUELANGEL - 7 assessed: 05/24/24 Source: Developed by Drs. Ben Singh, Shiela Matamoros, Pj Calles and colleagues, with an educational maynor from [employer]. Review of Systems Const Denies chills, Denies fatigue, Denies fever(s), Denies headache(s) and Denies weakness ENT Denies dizziness and Denies headache(s) Card Denies dyspnea Resp Denies cough, Denies dyspnea, Denies wheezing and Denies other (shortness of breath) Musc Denies numbness and Denies tingling Neuro Denies dizziness, Denies headache(s), Denies numbness, Denies tingling and Denies weakness Psych Denies anxiety and Denies depression Endo Denies fatigue Aller/Immun Denies wheezing Physical exam (Primary Care) Vital Signs: Last Vital Signs Temp 97.8 F 09/07/24 09:32 Pulse 68 09/07/24 09:32 Resp 14 09/07/24 09:32 BP 120/70 09/07/24 09:32 Pulse Ox 95 09/07/24 09:32 Oxygen Delivery Method Room Air 09/07/24 09:32 BMI result Body Mass Index 29.0 Tobacco/Smoking Status: Tobacco use Status Tobacco use date assessed 05/24/24 09/07/24 09:36 Patient Tobacco Use Status Never used Tobacco 09/07/24 09:36 e-Cigarette/Vaping Use Never Used 09/07/24 09:36 Thrive Assessment: Date of Thrive Assessment Date Thrive assessed 05/17/24 09/07/24 09:36 Currently or been in a relationship where the following occur: No concerns reported Const General: well developed; No acute distress Nutritional Appearance: well nourished Orientation/consciousness: patient oriented x3 HENMT Head: Yes normocephalic and Yes atraumatic Eyes General: appearance normal, both eyes and all related structures Pupils: Equal, round and reactive pupils present EOM: EOMs intact bilaterally Resp Effort & Inspection: normal respiratory effort Auscultation: clear to auscultation bilaterally Cardio Rate: regular rate Rhythm: regular rhythm Heart sounds: S1 normal heart sound present, S2 normal heart sound present, no gallops, no murmurs and no rubs Neuro General: patient oriented x3 and gait normal Cranial nerves: Yes Equal, round and reactive pupils present Psych Affect: normal affect Coding Level of Care Code Est Pt Level 4 (80280) Diagnoses Elevated liver enzymes R74.8 Elevated LDL cholesterol level E78.00 Pre-diabetes R73.03 Assessment & Plan Assessment & Plan (1) Elevated liver enzymes: Code(s): R74.8 - Abnormal levels of other serum enzymes Category: Medical Plan: Liver enzymes still elevated and have risen slightly Will check ultrasound Followed by Dr. Valentino for screening for colon cancer and will refer back if needed Likely fatty liver disease discussed weight loss (2) Elevated LDL cholesterol level: Code(s): E78.00 - Pure hypercholesterolemia, unspecified Category: Medical Plan: Elevated LDL cholesterol His other lipids within range Encouraged diet lower in saturated fats and cholesterol We will continue to monitor (3) Pre-diabetes: Code(s): R73.03 - Prediabetes Category: Medical Plan: Mildly elevated fasting blood sugar A1c 6.0% Encouraged a diet lower in sugars and starches Encouraged weight loss and exercise Will refer to the nurse navigator for nutrition teaching Plan Patient has appointment with Dr. Valentino for colonoscopy in September. He will return in about 3 months to follow-up elevated liver enzymes and we will follow-up on ultrasound Also following up pre diabetes and lab. Orders: Orders Comprehensive Met. Panel Today R74.8 - Abnormal levels of other serum enzymes US abdomen clay w elastography Today R74.8 - Abnormal levels of other serum enzymes Complete Blood Count Auto Diff Today D64.9 - Anemia, unspecified, Z00.00 - Encounter for general adult medical examination without abnormal findings Hepatitis B,C Profile Today R74.01 - Elevation of levels of liver transaminase levels, Z11.3 - Encounter for screening for infections with a predominantly sexual mode of transmission Lipid Panel Today E78.00 - Pure hypercholesterolemia, unspecified, Z00.00 - Encounter for general adult medical examination without abnormal findings Referrals Nurse Navigator Referral R73.03 - Prediabetes
[2024-09-07 09:32] VITALS: BP 120/70; PULSE 68; RESP 14; TEMP 36.6; O2SAT 95; BMI 29.0
--- OUTSIDE RECORDS SUMMARY | 2024-09-07 09:44 | XMS_ITS | Patient Health Record ---
Author Organization [facility] Address [address] [place] [address] Care Team Providers Care Endoscopy Registered Nurse Name Role Phone Palmer Solorzano Primary Care Provider Nella Costa Jr, Asif Nick [phone] Allergies Allergen (clinical drug ingredient) Drug/Non [...] Problem Screening for malignant neoplasm of colon (381693725) Encounter for screening for malignant neoplasm of colon (Z12.11) Active confirmed Problem H/O: high risk medication (452705662) High risk medication use (Z79.899) Active confirmed Vital Signs Temperature 99.3 degrees Fahrenheit 08/29/2024 Blood pressure diastolic 01 mm Hg 08/29/2024 Height 73 in 08/29/2024 Blood pressure systolic 001 mm Hg 08/29/2024 Weight 227.4 lbs 08/29/2024 BMI 30 kg/m2 08/29/2024 Encounters Encounter Location Date Provider Diagnosis [facility] [address] [place] [phone] 08/29/2024 Asif Valentino Jr Encounter for screening [...] Provider Name:Asif avilez , 09/27/2024 11:30:00 AM, [address] [place] [address], [phone], Insurance Providers Payer Name Payer Address Payer Phone Subscriber Number Group Number Insured Name Patient Relationship to Insured Coverage Start Date Coverage End Date MEDICARE OF [place] [address] [place] [address] [id number] LAURA NOVOA Self - patient is the insured 2 4 [facility] [address] [place] [address] [id number] LAURA NOVOA Self - patient is the insured 2 4 Medical (General) History Medical History History ICD Code Colonoscopy 05/30, tubular adenoma, 5-yea r follow-up Osteoarthritis Borderline high blood pressure Surgical History Surgery Date(Month/Year) tonsillectomy
== END 2024-09-07 10:33 | disposition home or self-care (01) ==
LOC: HO.HMCFM 09:14
PROVIDERS: PCP Family Medicine; Visit Provider Family Medicine
DX: R74.8 Abnormal levels of other serum enzymes (principal); E78.00 Pure hypercholesterolemia, unspecified; R73.03 Prediabetes

== ENCOUNTER → 2024-09-07 09:13 | Outpatient (BNVA) | payer OTHER, MEDICARE, SELFPAY | PROVIDERS: PCP Family Medicine; Visit Provider Family Medicine | DX: R73.03 Prediabetes (principal); R74.8 Abnormal levels of other serum enzymes; E78.00 Pure hypercholesterolemia, unspecified | CPT/HCPCS: 99212 ==

== ENCOUNTER → 2024-09-15 12:53 | Outpatient (BNVA) | payer OTHER, MEDICARE, SELFPAY | PROVIDERS: PCP Family Medicine | DX: R73.03 Prediabetes (principal); Z71.3 Dietary counseling and surveillance | CPT/HCPCS: 99211 ==

== ENCOUNTER 2024-09-27 08:39 | Day surgery (SDC) | payer OTHER, MEDICARE, SELFPAY ==
--- OUTSIDE RECORDS SUMMARY | 2024-08-29 16:07 | XMS_ITS | Patient Health Record ---
Author Organization [facility] Address [address] [place] [address] Care Team Providers Care Gate Shear Operator Name Role Phone Palmer Solorzano Primary Care Provider Nella Costa Jr, Asif Nick Allergies Allergen (clinical drug ingredient) Drug/Non Drug Allergy documented on EMR Reaction Allergy Type Onset Date Status Penicillin Unknown Drug Allergy Active Reason For Referral No Information Medications Medication SIG (Take, Route, Fr equency, Duration) Notes Start Date End Date Status Turmeric 500 MG as directed Orally Active Immunizations Vaccine Route Administration Date Status Comme nts Influenza Unknown 08/29/2024 Refused Problems Problem Type SNOMED Code ICD Code Onset Dates Problem Status W/U Status Risk Notes Problem Screening for malignant neoplasm of colon (491312586) Encounter for screening for malignant neoplasm of colon (Z12.11) Active confirmed Problem H/O: high risk medication (237661132) High risk medication use (Z79.899) Active confirmed Vital Signs Temperature 99.3 degrees Fahrenheit 08/29/2024 Blood pressure diastolic 01 mm Hg 08/29/2024 Height 73 in 08/29/2024 Blood pressure systolic 001 mm Hg 08/29/2024 Weight 227.4 lbs 08/29/2024 BMI 30 kg/m2 08/29/2024 Encounters Encounter Location Date Provider Diagnosis [facility] [address] [place] [phone] 08/29/2024 Asif Valentino Jr Encounter for screening for malignant neoplasm of colon Z12.11 and High risk medication use Z79.899 Assessments Encounter Date Diagnosis (ICD Code) Assessment Notes Treatment Notes Treatment Clinical Notes Section Notes 08/29/2024 Encounter for screening for malignant neoplasm of colon (ICD-10 - Z12.11) We discussed colonoscopy today. We discussed risks and benefits of the procedure today. He understands these and agrees to proceed. This will be scheduled at his convenience. He is advised to stop turmeric and ibuprofen 1 week before the procedure. 08/29/2024 High risk medication use (ICD-10 - Z79.899) We discussed colonoscopy today. We discussed risks and benefits of the procedure today. He understands these and agrees to proceed. This will be scheduled at his convenience. He is advised to stop turmeric and ibuprofen 1 week before the procedure. Plan Of Treatment Future Test Test Name Order Date COLONOSCOPY 02/24/2013 COLONOSCOPY 08/29/2024 Next Appt Details Provider Name:Asif avilez , 09/27/2024 11:30:00 AM, [address] [place] [address], [phone], Insurance Providers Payer Name Payer Address Payer Phone Subscriber Number Group Number Insured Name Patient Relationship to Insured Coverage Start Date Coverage End Date MEDICARE OF [place] [address] [place] [address] [id number] LAURA NOVOA Self - patient is the insured 2 4 [facility] [address] [place] [address] [phone] [id number] LAURA NOVOA Self - patient is the insured 2 4 Medical (General) History Medical History History ICD Code Colonoscopy 05/30, tubular adenoma, 5-yea r follow-up Osteoarthritis Borderline high blood pressure Surgical History Surgery Date(Month/Year) tonsillectomy
[2024-09-23 14:01] VITALS: BMI 29.9
--- NOTE | 2024-09-26 12:37 | HO.ANESPROP2 ---
Documented by User: Charity Ratliff NP 09/26/24 12:38 HPI - Anesthesia Eval Consult details Narrative: 69yo M for Colonoscopy PMFSH Active Problems Active Problems: All Active Problems Pre-diabetes (Acute) Elevated liver enzymes (Acute) Elevated blood pressure reading (Acute) Knee pain (Acute) Screening for prostate cancer (Acute) Screening for colon cancer (Acute) Elevated ALT measurement (Acute) Elevated LDL cholesterol level (Acute) Mild anemia (Acute) Elevated fasting glucose (Acute) Adult general medical examination (Acute) Laboratory exam ordered as part of routine general medical examination (Acute) Right knee pain (Acute) Past Medical History Medical History Osteoarthritis Tubular adenoma Surgical History Surgical History History of surgery Hx of tonsillectomy H/O colonoscopy Social History Social History Housing: House Patient Tobacco Use Status: Never used Tobacco e-Cigarette/Vaping Use: Never Used Second Hand Smoke Exposure: No Use of substances other than those prescribed or required for medical reasons: No Are you DNR?: No Advance Directives: No Advance Directives Information Provided: Yes Poor oral hygiene: No service: Yes Current occupational status: retired Current occupational exposures/hazards: No Cognitive needs: No Hearing needs: No Vision needs: No Meds Allergies Allergy/AdvReac Type Severity Reaction Status Date / Time Penicillins (PENICILLINS) Allergy Intermediate HIVES Verified 09/07/24 09:31 Home Medications ?Medication ?Instructions ?Recorded ?Confirmed ?Last Taken ?Type turmeric 400 mg capsule 400 mg PO DAILY 09/23/24 09/23/24 Unknown History Exam Height,Weight and Vital Signs: Height 6 ft 1 in Weight 102.965 kg Assessment and Plan Assessment Anesthesia Assessment: Chart Reviewed Documented by User: Nataliya Lopez MD 09/27/24 10:04 [facility] Past Medical History Medical History Osteoarthritis Tubular adenoma Family History Family history of problems with anesthesia: No Surgical History Surgical History History of surgery Hx of tonsillectomy H/O colonoscopy History of Problems with Anesthesia: No Social History Social History Housing: House Patient Tobacco Use Status: Never used Tobacco e-Cigarette/Vaping Use: Never Used Second Hand Smoke Exposure: No Use of substances other than those prescribed or required for medical reasons: No Are you DNR?: No Advance Directives: No Advance Directives Information Provided: Yes Poor oral hygiene: No service: Yes Current occupational status: retired Current occupational exposures/hazards: No Cognitive needs: No Hearing needs: No Vision needs: No Meds Allergies Allergy/AdvReac Type Severity Reaction Status Date / Time Penicillins (PENICILLINS) Allergy Intermediate HIVES Verified 09/07/24 09:31 Home Medications ?Medication ?Instructions ?Recorded ?Confirmed ?Last Taken ?Type turmeric 400 mg capsule 400 mg PO DAILY 09/23/24 09/23/24 Unknown History Exam Airway Mallampati Class: II TM Dist: >3cm Neck ROM: Full Heart: rrr Lungs: cta Assessment and Plan Assessment Anesthesia Assessment: Anesthesia Plan Discussed Final Anesthetic Review Family History of Problems with Anesthesia: No History of Problems with Anesthesia: No NPO: Yes ASA Class: I Final Preanesthetic Review: No Changes in Pt Med Stat, Meds/Allgs Chart Reviewed, Consent Obtained/Reviewed and Anes Risks/Benef Reviewed Patient Risk: Low Procedure Risk: Low Anesthetic Plan Anesthetic Plan: MAC: Disposition: Standard PACU
[2024-09-27 09:04] VITALS: BMI 28.2
[2024-09-27 09:09] VITALS: BP 146/82; PULSE 67; RESP 16; TEMP 36.3; O2SAT 95
[2024-09-27] MEDS: Lactated Ringers 1,000 ML 100 ML IVCONT (09:25)
--- NOTE | 2024-09-27 10:14 | MHC.SHP ---
Pre-Procedural Eval Section A - 24 Hr Update-Section A only Date of Service: 09/27/24 Section B - Complete if H&P > 30 days Chief Complaint: screening Details of Present Illness: see H&P no changes Relevant Family History (Specify if Yes): No Relevant Social History: None Present Medications: see Short Stay Collaborative assessment Medical History: No relevant PMH History of Previous Operations: No relevant previous surgery Allergies: Allergies Allergy/AdvReac Type Severity Reaction Status Date / Time Penicillins (PENICILLINS) Allergy Intermediate HIVES Verified 09/07/24 09:31 Review of Systems Sugical H&P ROS: Negative: Constitution, Cardiovascular, Respiratory, Neurological, Psychiatric, Hem-Onc, Allergic/Immunologic, Gastrointestinal, Genitourinary, Musculoskeletal, Integumentary, Endocrine and Eyes/Ears/Nose/Throat Exam Surgical H&P Exam: Normal: HEENT, Normal: Heart, Normal: Lungs, Normal: Extremities, Normal: Abdomen, Normal: Skin and Normal: Neurological Plan Diagnosis/Plan: Unchanged I have reviewed the history and physical and performed a pertinent physical examination on my patient. No changes have occurred unless specified. Time Spent With Patient Time: Total time managing care of this patient today ____ minutes.
[2024-09-27 11:00] VITALS: BP 99/65; PULSE 64; RESP 17; TEMP 36.3; O2SAT 95
[2024-09-27 11:16] VITALS: BP 108/65; PULSE 62; RESP 18; TEMP 36.2; O2SAT 97
--- NOTE | 2024-09-28 10:45 | OP_ITS ---
DATE OF SERVICE: 09/27/2024 SURGEON: Asif Valentino MD INDICATIONS: Colon cancer screening. PREOPERATIVE DIAGNOSIS: POSTOPERATIVE DIAGNOSIS: PROCEDURE PERFORMED: Colonoscopy to the cecum with biopsy. ESTIMATED BLOOD LOSS: COMPLICATIONS: ANESTHESIA: Monitored anesthesia care. ASSISTANTS: SPECIMENS: DESCRIPTION OF PROCEDURE: A history and physical was performed. The risks and benefits of the procedure were explained to the patient. Informed consent was obtained. The patient was placed in the left lateral decubitus position. A digital rectal exam was performed and was found to be normal. The Olympus pediatric video colonoscope was introduced into the rectum and advanced to the cecum. The cecum was identified by transillumination, palpation, and identification of ileocecal valve. Examination was performed. The scope was removed. He tolerated the procedure well, and was returned to the recovery area in stable condition. FINDINGS: The terminal ileum was not examined. The visualized colonic mucosa was normal. The quality of the prep was good. A total of 3 polyps were identified and removed with biopsy forceps. All measured less than 5 mm. These were located on the ileocecal valve, at 40 cm, and in the rectum. No other polyps were identified. There was mild sigmoid diverticulosis. The quality of the prep was good. Retroflexed examination showed internal hemorrhoids. IMPRESSION: Colon polyps. RECOMMENDATION: Follow up the biopsy results. MD KAVIN Kauffman/ANTONYL / [id number]
== END 2024-09-27 11:37 | disposition home or self-care (01) ==
PROVIDERS: PCP Family Medicine; Visit Provider Internal Medicine Gastroenterology
PROC: 0DJD8ZZ Inspection of Lower Intestinal Tract, Via Natural or Artificial Opening Endoscopic (ICD-10-PCS; CPT 45378; principal; 2024-09-27 10:30)
DX: Z12.11 Encounter for screening for malignant neoplasm of colon (principal); D12.0 Benign neoplasm of cecum; D12.5 Benign neoplasm of sigmoid colon; D12.8 Benign neoplasm of rectum; K57.30 Diverticulosis of large intestine without perforation or abscess without bleeding; K64.8 Other hemorrhoids; Z86.0101 Personal history of adenomatous and serrated colon polyps; Z80.0 Family history of malignant neoplasm of digestive organs; E78.00 Pure hypercholesterolemia, unspecified; R03.0 Elevated blood-pressure reading, without diagnosis of hypertension; D64.9 Anemia, unspecified; Z79.899 Other long term (current) drug therapy
CPT/HCPCS: 45380; 88305; J2003; J2704

== ENCOUNTER 2024-11-14 10:41 | Outpatient (REF) | payer OTHER, MEDICARE, SELFPAY ==
--- OUTSIDE RECORDS SUMMARY | 2024-09-27 06:30 | XMS_ITS ---
Author Organization [facility] Address [address] [place] [address] Care Team Providers Care Plant Taxonomy Teacher Name Role Phone Palmer Solorzano Primary Care Provider UnavailAsif George Jr [phone] REASON FOR VISIT screening Encounters Encounter Location Date Provider Diagnosis [facility] Outpatient [address] [place] [phone] 09/27/2024 Asif Valentino Jr Plan Of Treatment No Information Progress Notes * LAURA NOVOADOB:[birth year] (69 yo M)Acc No.[id number]:09/27/2024 COLON WITH MAC Patient: LAURA KUHN Provider: Nadeem Valentino MD :1955 A ge:69 Y S ex:Male Date:09/27/2024 Address:[address] [place], [place] [id number] Pcp:Palmer Solorzano Subjective: * Chief Complaints: * 1 . Screening. * Medical History: Objective: * Vitals: Assessment: Plan: * Treatment: * * The named appointment provid er may or may not be the originator of this progress note, and it is not deemed complete until electronically signed by the appointment provider. Sign off status: Pending * Provider: Nadeem Valentino MD Date: 0 09/27/2024 Generated for Printi ng/Faxing/eTransmitting on: 11/14/2024 12:00 PM EDT
--- NOTE | ~2024-11-14 | US_ITS ---
EXAMINATION: US ABDOMEN LIMITED WITH LIVER ELASTOGRAPHY HISTORY: R74.8 - Abnormal levels of other serum enzymes TECHNIQUE: Real-time grayscale ultrasound imaging of the right upper quadrant was performed and images were reviewed. COMPARISON: There are no prior studies available for comparison. FINDINGS: Liver: The right lobe of the liver measures 18.7 cm in size. The left lobe of the liver measures 12.1 cm in size. The liver demonstrates increased echotexture, consistent with steatosis. No focal mass or intrahepatic biliary ductal dilatation is identified. There is normal hepatopedal flow in the portal vein. Ultrasound elastography of the liver was performed with 10 separate measurements of the liver parenchyma with the patient in the supine position. Measurements were obtained approximately 2 cm below Semaj's capsule and perpendicular to the capsule. The median shear wave velocity is 1.08 m/s. The interquartile range/median (IQR/median) is 0.19. Gallbladder and biliary tree: The gallbladder is unremarkable, without evidence of calculi, wall thickening, or pericholecystic fluid. There is no sonographic Manzano sign. The common bile duct is not well visualized. Right Kidney: The right kidney measures 12.7 cm in length. The right kidney is unremarkable, without evidence of masses, hydronephrosis, or calculi. Pancreas: The pancreatic head, neck, and body are unremarkable. The pancreatic tail is obscured by bowel gas. Abdominal aorta and inferior vena cava: The visualized portions of the abdominal aorta and inferior vena cava are normal in caliber. There is no free fluid in the right upper quadrant. US/US abdomen clay w elastography IMPRESSION: Hepatomegaly and hepatic steatosis. The median shear wave velocity in the liver is 1.08 m/s, corresponding to a median liver stiffness of 3.5 kPa. The IQR/median value is 0.19. This is indicative of a quality data set. Findings are indicative of a normal elastography value with a low likelihood of severe fibrosis or cirrhosis. REFERENCE: Society of Radiologists in Ultrasound Liver Stiffness Thresholds (2019): LIVER STIFFNESS THRESHOLDS: *Shear wave velocity less than 1.3 m/s (Liver Stiffness equal or less than 5 kPa): High probability of being normal. *Shear wave velocity less than 1.7 m/s (Liver Stiffness less than 9 kPa): In the absence of other known clinical signs, rules out compensated advanced chronic liver disease. *Shear wave velocity between 1.7-2.1 m/s (Liver Stiffness 9-13 kPa): Suggestive of compensated advanced chronic liver disease but need further test for confirmation. *Shear wave velocity between 2.1-2.4 m/s (Liver Stiffness 13-17 kPa): Rules in compensated advanced chronic liver disease. *Shear wave velocity greater than 2.4 m/s (Liver Stiffness over 17 kPa): Suggestive of clinically significant portal hypertension. QUALITY OF DATA SET: *IQR/Median value equal or less than 0.30 implies a quality data set. *IQR/Median value over 0.30 implies a poor quality data set. SIGNIFICANT CHANGE FROM PRIOR EXAM: Significant change if liver stiffness measurement is 10% or greater from prior exam. OTHER CONSIDERATIONS: The stage of liver fibrosis may be overestimated in the setting of acute hepatitis, liver inflammation, elevated liver function tests, hepatic vascular congestion, obstructive cholestasis, non-fasting state, and infiltrative diseases such as amyloidosis and lymphoma. In some patients with NAFLD, the liver stiffness thresholds for compensated advanced chronic liver disease may be lower. In causes other than viral hepatitis and NAFLD, liver stiffness thresholds are not well established. Electronically signed by: Ben Medel MD 11/14/2024 11:39 AM EDT
--- OUTSIDE RECORDS SUMMARY | 2024-11-14 12:01 | XMS_ITS | Patient Health Record ---
Author Organization [facility] Address [address] [place] [address] Care Team Providers Care Dye Range Operator Name Role Phone Palmer Solorzano Primary Care Provider UnavailAsif George Jr Unavailable [phone] Allergies Allergen (clinical drug ingredient) Drug/Non Drug Allergy documented on EMR Reaction Allergy Type Onset Date Status Penicillin Unknown Drug Allergy Active Results Component Value Reference Range Notes Pathology Reviewed date:10/05/2024 08:07:40 AM Interpretation: Performing Lab:[facility], [address] [place] [id number] Notes/Report: Reason For Referral No Information Medications Medication SIG (Take, Route, Fr equency, Duration) Notes Start Date End Date Status Turmeric 500 MG as directed Orally Active Immunizations Vaccine Route Administration Date Status Comme nts Influenza Unknown 08/29/2024 Refused Problems Problem Type SNOMED Code ICD Code Onset Dates Problem Status W/U Status Risk Notes Problem Screening for malignant neoplasm of colon (317462244) Encounter for screening for malignant neoplasm of colon (Z12.11) Active confirmed Problem H/O: high risk medication (093596824) High risk medication use (Z79.899) Active confirmed Vital Signs Temperature 99.3 degrees Fahrenheit 08/29/2024 Blood pressure diastolic 01 mm Hg 08/29/2024 Height 73 in 08/29/2024 Blood pressure systolic 001 mm Hg 08/29/2024 Weight 227.4 lbs 08/29/2024 BMI 30 kg/m2 08/29/2024 Encounters Encounter Location Date Provider Diagnosis [facility] Outpatient [address] [place] [phone] 09/27/2024 Asif Valentino Jr [facility] [address] [place] [address] 08/29/2024 Asif Valentino Jr Encounter for screening for malignant neoplasm of colon Z12.11 and High risk medication use Z79.899 [facility] [address] [place] [address] 10/05/2024 Asif Valentino Jr Assessments Encounter Date Diagnosis (ICD Code) Assessment [...] Name Order Date COLONOSCOPY 02/24/2013 COLONOSCOPY 08/29/2024 Insurance Providers Payer Name Payer Address Payer Phone Subscriber Number Group Number Insured Name Patient Relationship to Insured Coverage Start Date Coverage End Date [facility] [address] [place] [address] [phone] [id number] LAURA NOVOA Self - patient is the insured 2 4 MEDICARE OF [place] [address] [place] [address] [id number] LAURA NOVOA Self - patient is the insured 2 4 Medical (General) History Medical History History ICD Code Colonoscopy 05/30, tubular adenoma, 5-yea r follow-up Osteoarthritis Borderline high blood pressure Surgical History Surgery Date(Month/Year) tonsillectomy
== END 2024-11-14 10:42 | disposition home or self-care (01) ==
LOC: HO.US 10:41
PROVIDERS: PCP Family Medicine; Visit Provider Family Medicine
DX: R74.8 Abnormal levels of other serum enzymes (principal)
CPT/HCPCS: 76705; 76981

== ENCOUNTER → 2024-11-14 10:42 | Outpatient (BNV) | payer OTHER, MEDICARE, SELFPAY | PROVIDERS: PCP Family Medicine; Visit Provider Radiology Diagnostic Radiology | DX: K76.0 Fatty (change of) liver, not elsewhere classified (principal); R16.0 Hepatomegaly, not elsewhere classified | CPT/HCPCS: 76705 ==

== ENCOUNTER 2024-12-06 11:16 | Outpatient (REF) | payer OTHER, MEDICARE, SELFPAY ==
[2024-12-06 14:21] LABS: MANUAL DIFF FLAG NO
[2024-12-06 14:30] LABS: Hematocrit 40.4 % (42.0-52.0); Hemoglobin 13.7 g/dl (14.0-18.0); Imm Gran Abs Auto 0.02 X10*3/uL (0.00-0.03); Imm Gran Pct Auto 0.4 % (0.0-0.4); Lymphocytes Absolute Auto 1.5 X10*3/uL (1.2-4.9); Mean Corpuscular HGB Conc 33.9 g/dl (31.0-36.0); Mean Corpuscular Hemoglobin 28.9 pg (27.0-33.0); Mean Corpuscular Volume 85.2 fL (80.0-98.0); NRBC Abs Auto 0.000 X10*3/uL (0.0-0.012); NRBC Pct Auto 0.0 /100WBC (0.0-0.2); Platelet Count 215 X10*3/uL (160-400); Red Blood Count 4.74 X10*6/uL (4.60-5.80); White Blood Count 5.1 X10*3/uL (4.8-10.8)
[2024-12-06 19:12] LABS: Albumin Level 4.7 g/dL (3.5-5.0); Alkaline Phosphatase 68 U/L (39-117); Anion Gap 11 (12-20); Aspartate Amino Transferase 32 U/L (5-37); Blood Urea Nitrogen 11 mg/dL (9-16); Calcium 9.4 mg/dL (8.4-10.2); Carbon Dioxide 28 mmol/L (22-29); Chloride 106 mmol/L (96-108); Cholesterol 173 mg/dL (<200); Estimated Glomerular Filt Rate > 60; HDL Cholesterol 53 mg/dL (>40); Potassium 4.5 mmol/L (3.3-5.1); Sodium 140 mmol/L (135-145); Total Protein 7.9 g/dL (6.5-8.0); Triglycerides 111 mg/dL (<150)
[2024-12-06 19:22] LABS: Alanine Aminotransferase 43 U/L (0-40)
[2024-12-07 03:40] LABS: HBS Num1 0.40 mIU/mL (0-7.99); HBc Num1 0.14 S/CO (0.00-0.79); HBsAGNum1 0.46 S/CO (0.00-0.99); Hepatitis B Surface Antigen Negative (Negative); ~HepC Num1 0.09 S/CO (0.00-0.79); ~Hepatitis B Surface Antibody NONREACTIVE (Nonreactive); ~Hepatitis C Antibody Nonreactive (Nonreactive)
== END 2024-12-06 11:17 | disposition home or self-care (01) ==
LOC: HO.WFDLDS 11:16
PROVIDERS: Visit Provider Family Medicine
DX: Z00.00 Encounter for general adult medical examination without abnormal findings (principal); D64.9 Anemia, unspecified; R74.01 Elevation of levels of liver transaminase levels; E78.00 Pure hypercholesterolemia, unspecified; R74.8 Abnormal levels of other serum enzymes; Z11.3 Encounter for screening for infections with a predominantly sexual mode of transmission
CPT/HCPCS: 36415; 80053; 80061; 85025; 86704; 86706; 86803; 87340

== ENCOUNTER 2024-12-08 13:11 | Outpatient (AMB) | payer OTHER, MEDICARE, SELFPAY ==
--- NOTE | 2024-12-08 13:34 | MHC.PC.OV ---
Vital Signs 12/08/24 13:39 Height 6 ft 1 in Weight 216 lb 8 oz BMI 28.6 BP 110/84 Blood Pressure Location Rt brachial Position Sitting Respiration 16 Pulse 58 Pulse Source Pulse Oximeter Temp 97.8 F Temp Source Oral Pulse Oximetry (%) 97 Oxygen Delivery Method Room Air Intake Visit Reasons: f/u pre-diabetes, liver enzymes Intake Note: patient is scheduled to review labs and pre-dm with pcp Judicial Registrar Required: No Allergies Penicillins (PENICILLINS) Allergy (Intermediate, Verified 12/08/24 13:38) HIVES Tobacco use date assessed: 05/24/24 Dental Screening Dental Screen Date: 05/24/24 HPI f/u pre-diabetes, liver enzymes HPI Details 69 y/o male presents to f/u labs. Labs drawn 12/06/24. Reviewed labs with pt. Ongoing mild anemia. Triglycerides 111. TC 173. LDL improved from 111 to 98. HDL 53. AST 32, ALT improved from 60 to 43. Hx of pre-diabetes. A1c today 12/08/24 is 5.5%. PFSH Medical History Osteoarthritis Tubular adenoma Surgical History History of surgery Hx of tonsillectomy H/O colonoscopy Social History Housing: House Patient Tobacco Use Status: Never used Tobacco e-Cigarette/Vaping Use: Never Used Second Hand Smoke Exposure: No service: Yes Current occupational status: retired Current occupational exposures/hazards: No Cognitive needs: No Hearing needs: No Vision needs: No Questionnaire Thrive Questionnaire Date Thrive assessed: 05/17/24 I am a: Patient What is your living situation today?: I have a steady place to live Within the past 12 months, did the food you bought not last and you didn't have the money to get more?: Never true Within the past 12 months, did you worry whether your food would run out before you got money to buy more?: Never true Do you have trouble paying for medicines?: No Do you have trouble getting transportation to medical appointments?: No Do you have trouble paying your heating and electricity bill?: No Do you have trouble taking care of your child, family member or friend?: No Do you have trouble with day-to-day activities such as bathing, preparing meals, shopping, managing finances, etc.?: No Are you currently unemployed and looking for a job?: No Are you interested in more education?: No Please select the resources that you would like help with: None Currently or been in a relationship where the following occur: No concerns reported THRIVE Score: 0 MIGUELANGEL-7 AMB Questionnaire MIGUELANGEL-7 Date MIGUELANGEL - 7 assessed: 05/24/24 Source: Developed by Drs. Ben Singh, Shiela Matamoros, Pj Calles and colleagues, with an educational maynor from [employer] Physical exam (Primary Care) Vital Signs: Last Vital Signs Temp 97.8 F 12/08/24 13:39 Pulse 58 12/08/24 13:39 Resp 16 12/08/24 13:39 BP 110/84 12/08/24 13:39 Pulse Ox 97 12/08/24 13:39 Oxygen Delivery Method Room Air 12/08/24 13:39 BMI result Body Mass Index 28.6 Tobacco/Smoking Status: Tobacco use Status Tobacco use date assessed 05/24/24 12/08/24 13:35 Patient Tobacco Use Status Never used Tobacco 12/08/24 13:35 e-Cigarette/Vaping Use Never Used 12/08/24 13:35 Thrive Assessment: Date of Thrive Assessment Date Thrive assessed 05/17/24 12/08/24 13:35 Currently or been in a relationship where the following occur: No concerns reported Coding Level of Care Code Est Pt Level 4 (52932) Diagnoses Pre-diabetes R73.03 Elevated liver enzymes R74.8 Elevated LDL cholesterol level E78.00 Assessment & Plan Assessment & Plan (1) Pre-diabetes: Code(s): R73.03 - Prediabetes Category: Medical Plan: A1c 5.5% which is in top normal range. Has had A1c up in pre diabetes range. Continue working at a diet low in sugars and starches Will continue to monitor (2) Elevated liver enzymes: Code(s): R74.8 - Abnormal levels of other serum enzymes Category: Medical Plan: Liver enzymes are improving And I encouraged weight loss and good hydration Recent ultrasound of the liver showed hepatomegaly with hepatic steatosis but no masses or focal lesions. Elastography is within normal range (3) Elevated LDL cholesterol level: Code(s): E78.00 - Pure hypercholesterolemia, unspecified Category: Medical Plan: LDL is back in normal range Continue working on a diet low in saturated fats and cholesterol Encouraged weight loss Orders: Orders Hemoglobin A1c Today R73.01 - Impaired fasting glucose, R73.03 - Prediabetes Comprehensive [place]. Panel Fast Today R74.8 - Abnormal levels of other serum enzymes, Z00.00 - Encounter for general adult medical examination without abnormal findings Lipid Panel Today E78.00 - Pure hypercholesterolemia, unspecified, Z00.00 - Encounter for general adult medical examination without abnormal findings
[2024-12-08 13:39] VITALS: BP 110/84; PULSE 58; RESP 16; TEMP 36.6; O2SAT 97; BMI 28.6
== END 2024-12-08 14:17 | disposition home or self-care (01) ==
LOC: HO.HMCFM 13:12
PROVIDERS: PCP Family Medicine; Visit Provider Family Medicine
DX: R73.03 Prediabetes (principal); R74.8 Abnormal levels of other serum enzymes; E78.00 Pure hypercholesterolemia, unspecified

== ENCOUNTER → 2024-12-08 13:11 | Outpatient (BNVA) | payer OTHER, MEDICARE, SELFPAY | PROVIDERS: PCP Family Medicine; Visit Provider Family Medicine | DX: R53.83 Other fatigue (principal); R74.8 Abnormal levels of other serum enzymes; E78.00 Pure hypercholesterolemia, unspecified | CPT/HCPCS: 83036 ==